=== PATIENT | male | born 1950 | race Caucasian/White ===

== ENCOUNTER → 2023-09-06 13:32 | Outpatient (REF) | payer BC, SELFPAY | LOC: RAD 13:32 | PROVIDERS: ATTENDING PHYSICIAN Podiatrist Primary Podiatric Medicine; FAMILY PHYSICIAN Internal Medicine | DX: L03.031 Cellulitis of right toe (principal); M79.674 Pain in right toe(s) | CPT/HCPCS: 73630 ==

== ENCOUNTER 2023-09-07 11:31 | Inpatient (IN) | payer BC, SELFPAY ==
[2023-09-07] VITALS (12 sets, daily range): BP systolic 124–170; BP diastolic 69–98; BMI 33.8; BMI 32.8
--- NOTE | 2023-09-07 08:05 | ED.MUSCINJ ---
HPI-Injury
<Juan Daniel Vera PA-C - Last Filed: 09/08/23 07:11>
General
Chief Complaint: Musculo-Skeletal Complaint
Source: patient
Exam Limitations: none
Time Seen by Provider: 09/07/23 07:46
Travel History
Have you had any contact with someone who has COVID-19?: No
Do you have any symptoms of coronavirus? Fever > 100 degrees, chills, cough, shortness of breath, sore throat, loss of taste or smell, muscle aches, or headache?: No
History of Present Illness-Injury
Initial Injury comments:
72-year-old male insulin-dependent diabetic with history of vascular disease presents in referral from podiatry office for infected right second toe. He has been on an oral antibiotic for the past week secondary to this. He had x-rays obtained of
his foot yesterday which demonstrated acute mild osteomyelitis of the distal nail of the second toe. Sent in by podiatry for escalation of care. Denies fevers nausea or vomiting. No chest pain. No other complaints at this
Past History
<Juan Daniel Vera PA-C - Last Filed: 09/08/23 07:11>
Past History
ED Past Medical History: CAD, HTN, Hypercholesterolemia, IDDM, OR and Other (Renal insufficiency)
ED Past Surgical History: Cardiac (Triple Bypass surgery, multiple cardiac stents)
Social History
Tobacco: Non-smoker
Drug: None
Personal:
Living: with family
Employment: Retired
Family History
Family History: Other
Phy Exam
<Juan Daniel Vera PA-C - Last Filed: 09/08/23 07:11>
Physical Exam
Physical Exam:
General: Well-appearing nontoxic male no acute respiratory distress
HEENT: Normocephalic atraumatic
Heart: Regular rate and rhythm no murmurs
Lungs: Clear to auscultation bilaterally no wheezing
Skin: Erythema and swelling noted to the right second toe. There are some erosion of the distal aspect of the toe. No lymphangitic streaking. The foot itself is not swollen
Vascular: 2+ dorsalis pedis pulse right foot with brisk capillary refill to the toes
Neurologic: Decreased sensation to light touch right foot alert and oriented x 3
Injury Course
<Juan Daniel Vera PA-C - Last Filed: 09/08/23 07:11>
Orders/Labs/Results
Orders:
Orders
09/07/23 08:38
Complete Blood Count/With Diff Urgent
Comprehensive Metabolic Panel Urgent
Blood Culture Q30M
RED Source: Blood/Venous
Specimen Description:
09/07/23 Lunch
2200 calorie (18 carb) Diabetic
At Your Request: Full Participation
Does patient need a safe tray?: No
09/07/23 10:44
Blood Culture Q30M
RED Source: Blood/Venous
Specimen Description:
09/07/23 10:59
Admit/Transfer Patient As Directed
Co-Sign Provider:
Level of Care: Inpatient admission
Assign to:: Medical/Surgical
Physician / Group: [place]
Diagnosis: Right second toe osteomyelitis
Reason for Hospitalization: see progress note
Expected length of stay greater than two midnights?: Yes
ELOS- Estimated Length of Stay in days: 3
I certify the patient meets the requirements for IP care: Yes
09/07/23 11:01
Code Status As Directed
Resuscitation Status: Full Code
09/07/23 15:41
Acetaminophen [Tylenol] 650 mg PO Q4HPRN PRN
Dextrose 50%-Water [Dextrose 50% Syringe] 12.5 grams IV [id number] PRN
Glucagon [GlucaGen] 1 mg IM PRN PRN
Insulin Aspart Corrective Low [Novolog Flexpen-Low Resistance] See Protocol SC AC
Tramadol HCl [Ultram] 50 mg PO Q8HPRN PRN
09/07/23 16:00
CeFAZolin 1 GRAM [Ancef] 1 gram in 5 ml IV Q8H
09/07/23 18:00
Enoxaparin Sodium [Lovenox] 40 mg SC QPM
Insulin NPH Human Isophane Pen [Humulin N Kwikpen] 40 units SC QPM
09/07/23 20:00
Galantamine [Razadyne] 8 mg PO BID
Memantine HCl [Namenda] 10 mg PO BID
Metoprolol [Lopressor] 50 mg PO BID
Pantoprazole [Protonix] 40 mg PO BID
09/07/23 20:05
Atorvastatin [Lipitor] 20 mg PO QPM
09/07/23 20:05
PHYSICIAN CONSULT Routine
Consulting Provider: Ruben Varela
Was physician already notified: Yes
Reason for consult: rt second toe OM
PODIATRY CONSULT Routine
Consulting Provider: Tre Urias
Was physician already notified: Yes
Reason for consult: Rt 2nd toe OM
Activity As Directed
Activity Level: As Tolerated
Bedside Glucose Monitoring As Directed
Frequency: AC&HS
Comment: Change to q6h if pt on TPN, tube feeding or not eating
I&O [Intake/ Output] As Directed
Frequency: q12h
DX Deep Vein Thrombosis Video Routine
09/08/23 06:00
BMP [Basic Metabolic Panel] IN AM
Glycohemoglobin (HgbA1c) IN AM
09/08/23 08:00
Aspirin Low Dose EC [Aspir Low (Enteric Coated)] 81 mg PO DAILY
Finasteride [Proscar] 5 mg PO DAILY
Insulin NPH Human Isophane Pen [Humulin N Kwikpen] 55 units SC DAILY
Tamsulosin [Flomax] 0.4 mg PO DAILY
09/09/23 08:00
Losartan [Cozaar] 100 mg PO DAILY
Abnormal Lab Results
09/07/23
08:38
Immature Gran % 0.6 H %
(0-0.5)
Monocytes % 9.6 H %
(1.7-9.3)
BUN 23 H mg/dl
(9-20)
Creatinine 1.4 H mg/dL
(0.7-1.3)
Glucose 118 H mg/dl
(70-99)
09/07/23 08:38
09/07/23 08:38
<Heike Childs MD - Last Filed: 09/07/23 08:39>
Orders/Labs/Results
Orders:
Orders
09/07/23 08:38
Complete Blood Count/With Diff Urgent
Comprehensive Metabolic Panel Urgent
Blood Culture Q30M
RED Source: Blood/Venous
Specimen Description:
09/07/23 Lunch
2200 calorie (18 carb) Diabetic
At Your Request: Full Participation
Does patient need a safe tray?: No
09/07/23 10:44
Blood Culture Q30M
RED Source: Blood/Venous
Specimen Description:
09/07/23 10:59
Admit/Transfer Patient As Directed
Co-Sign Provider:
Level of Care: Inpatient admission
Assign to:: Medical/Surgical
Physician / Group: [facility]
Diagnosis: Right second toe osteomyelitis
Reason for Hospitalization: see progress note
Expected length of stay greater than two midnights?: Yes
ELOS- Estimated Length of Stay in days: 3
I certify the patient meets the requirements for IP care: Yes
09/07/23 11:01
Code Status As Directed
Resuscitation Status: Full Code
09/07/23 15:41
Acetaminophen [Tylenol] 650 mg PO Q4HPRN PRN
Dextrose 50%-Water [Dextrose 50% Syringe] 12.5 grams IV [id number] PRN
Glucagon [GlucaGen] 1 mg IM PRN PRN
Insulin Aspart Corrective Low [Novolog Flexpen-Low Resistance] See Protocol SC AC
Tramadol HCl [Ultram] 50 mg PO Q8HPRN PRN
09/07/23 16:00
CeFAZolin 1 GRAM [Ancef] 1 gram in 5 ml IV Q8H
09/07/23 18:00
Enoxaparin Sodium [Lovenox] 40 mg SC QPM
Insulin NPH Human Isophane Pen [Humulin N Kwikpen] 40 units SC QPM
09/07/23 20:00
Galantamine [Razadyne] 8 mg PO BID
Memantine HCl [Namenda] 10 mg PO BID
Metoprolol [Lopressor] 50 mg PO BID
Pantoprazole [Protonix] 40 mg PO BID
09/07/23 20:05
Atorvastatin [Lipitor] 20 mg PO QPM
09/07/23 20:05
PHYSICIAN CONSULT Routine
Consulting Provider: Ruben Varela
Was physician already notified: Yes
Reason for consult: rt second toe OM
PODIATRY CONSULT Routine
Consulting Provider: Tre Urias
Was physician already notified: Yes
Reason for consult: Rt 2nd toe OM
Activity As Directed
Activity Level: As Tolerated
Bedside Glucose Monitoring As Directed
Frequency: AC&HS
Comment: Change to q6h if pt on TPN, tube feeding or not eating
I&O [Intake/ Output] As Directed
Frequency: q12h
DX Deep Vein Thrombosis Video Routine
09/08/23 06:00
BMP [Basic Metabolic Panel] IN AM
Glycohemoglobin (HgbA1c) IN AM
09/08/23 08:00
Aspirin Low Dose EC [Aspir Low (Enteric Coated)] 81 mg PO DAILY
Finasteride [Proscar] 5 mg PO DAILY
Insulin NPH Human Isophane Pen [Humulin N Kwikpen] 55 units SC DAILY
Tamsulosin [Flomax] 0.4 mg PO DAILY
09/09/23 08:00
Losartan [Cozaar] 100 mg PO DAILY
Abnormal Lab Results
09/07/23
08:38
Immature Gran % 0.6 H %
(0-0.5)
Monocytes % 9.6 H %
(1.7-9.3)
BUN 23 H mg/dl
(9-20)
Creatinine 1.4 H mg/dL
(0.7-1.3)
Glucose 118 H mg/dl
(70-99)
09/07/23 08:38
09/07/23 08:38
<Juan Daniel Vera PA-C - Last Filed: 09/08/23 07:11>
MDM/Problems Addressed
Differential Diagnosis Includes:
I reviewed x-rays from yesterday which demonstrates erosion of the distal aspect of the distal phalanx of the right second toe which is suggest acute mild osteomyelitis patient has been on oral antibiotics for a week without improvement. He has
risk factors of diabetes and vascular disease. Will admit to hospital. Overall he is nontoxic. Defer antibiotic until blood cultures and/or operative cultures are obtained.
<Juan Daniel Vera PA-C - Last Filed: 09/08/23 07:11>
*Critical Care Note
Total Time (30-74mins, 75-104mins- exclusive of procedures): Not Applicable
ED Attending Note
<Juan Daniel Vera PA-C - Last Filed: 09/08/23 07:11>
-
Portions of this chart may have been created with voice recognition software.� Occasional wrong word or��sound alike� substitutions may have occurred due to the inherent limitations of voice recognition software.
<Heike Childs MD - Last Filed: 09/07/23 08:39>
ED Attending Note
Patient seen and examined by attending physician: Yes
I performed the substantive portion of visit, reviewed & personally made and approve the management plan that is documented in note by myself or MASTER.: Yes
ED Attending Note:
Patient appears well. He is alert and oriented x 3. Heart sounds regular lungs are clear. Patient has strong pulses of feet bilaterally. Given patient appears nontoxic and well, IV antibiotics will be held off until likely procedure by podiatry.
Discharge Plan
Departure
Patient Disposition: Admit
Date of Disposition: 09/07/23
Time of Disposition: 09:07
Admit to: Med/Surg
Presentation/result/management discussed w/ accepting MD/DO: Hospitalist
Discharge Problem:
Acute osteomyelitis
Interventions
Interventions:
*Risk Screen - Suicide Last Done: 09/07/23 21:23
*General Assessment Last Done: 09/07/23 17:00
*Neglect/Abuse Screening Last Done: 09/07/23 17:00
ED- Fall Risk Assessment Last Done: 09/07/23 17:00
*ED COVID-19 Vaccine History Last Done: 09/07/23 21:23
*Nursing Disposition Last Done: 09/07/23 20:06
ED-Musculoskeletal Assessment Last Done: 09/07/23 08:44
Discharge Date and Time
Discharge Date/Time: 09/07/23 20:10
[2023-09-07 08:47] LABS: % Basophils 1.2 % (0-2); % Eosinophils 2.8 % (0-6); % Immature Granulocytes 0.6 % (0-0.5); % Lymphocytes 20.9 % (20.5-51.1); % Monocytes 9.6 % (1.7-9.3); % Neutrophils 64.9 % (42.2-75.2); Absolute Basophils 0.1 10^3/uL (0-0.2); Absolute Eosinophils 0.2 10^3/uL (0-0.7); Absolute Lymphocytes 1.4 10^3/uL (1.2-3.4); Absolute Monocytes 0.6 10^3/uL (0.1-0.6); Absolute Neutrophils 4.2 10^3/uL (1.4-6.5); Hematocrit 40.3 % (39.0-52.0); Hemoglobin 13.8 g/dL (13.0-18.0); Mean Corp Hgb Conc. 34.2 g/dL (33.0-37.0); Mean Corpuscular Hgb 29.3 pg (27.0-31.0); Mean Corpuscular Volume 85.6 fL (80.0-94.0); Mean Platelet Volume 10.2 fL (7.4-10.4); Nucleated Red Blood Cells % 0 % (-); Platelet Count 249 10^3/uL (130-400); Red Blood Cell Count 4.71 10^6/uL (4.70-6.10); Red Cell Dist. Width 13.1 % (11.5-14.5); White Blood Cell Count 6.5 10^3/uL (4.8-10.8)
[2023-09-07 08:56] LABS: ALT (SGPT) 20 U/L (0-50); AST (SGOT) 19 U/L (17-59); Albumin 3.9 g/dl (3.5-5.0); Alkaline Phosphatase 99 U/L (38-126); Blood Urea Nitrogen 23 mg/dl (9-20); Calcium 9.6 mg/dl (8.4-10.2); Carbon Dioxide 26 mmol/L (22-30); Chloride 103 mmol/L (98-107); Estimated Creatinine Clearance 57 ml/min; Glucose 118 mg/dl (70-99); Potassium 4.2 mmol/L (3.5-5.1); Sodium 136 mmol/L (135-145); Total Bilirubin 0.7 mg/dl (0.2-1.3); Total Protein 6.7 g/dl (6.3-8.2); eGFR 53.74
--- NOTE | 2023-09-07 11:07 | HPS.HSE ---
Family Physician
-
Family Physician: Khris Shen
Chief Complaint
-
Right second toe infection
History of Present Illness
Patient with longstanding issues that the toenails present are red possible right toenail infection.
Patient states his toenails turn black and falls off and then clears ;this has been happening for a while.
It happens in both feet.
This time his right second toenail on the right toe toenail became black and saw the clinic receptionist who took the second toenail off. This time is not clearing he has persistent right second toenail discoloration. Carbonator requested x-ray of the
second toe distal phalanx was concerning for osteomyelitis so referred to the hospital for further evaluation. He was also getting cephalexin antibiotics last week.
No fever or chills.
Not much pain from the toes. He has neuropathy of the toenails on bilateral foot from diabetes mellitus.
Denies any peripheral arterial disease. Denies prior history of cellulitis or foot infection needing surgery on antibiotics.
He has a history of CAD s/p CABG and 6 stents.
Longstanding diabetes since and his hemoglobin A1c has been up and down.
Medical History
Past Medical History
Past Medical History: Reports CAD, HTN, Hypercholesterolemia and IDDM
Past Surgical History: Reports Cardiac (CABG)
Social History
Tobacco: Non-smoker
Alcohol: Occasional
Drug: None
Living: With Family
Family History
Family History: Not pertinent
Allergies / Home Medications
Allergies reflects when Allergies were last updated in [employer].
Home Medications with original date entered in [employer]
Allergy/Medication List:
Allergies
Allergy/AdvReac Type Severity Reaction Status Date / Time
oxycodone Allergy Unknown Verified 04/05/22 14:00
Isqugeq-HEJ-SdO Reductase Allergy Unknown Verified 04/05/22 14:00
Inhibitor
[Baeznxv-Bop-Aaw Reductase
Inhibitor]
thallium-201 [Thallium-201] Allergy Headache Verified 04/05/22 14:00
and heart
racing
Home Medications
clopidogrel 75 mg tablet 75 mg PO DAILY ##90 08/14/16
finasteride 5 mg tablet 5 mg PO DAILY 02/14/17
galantamine 16 mg 24 hr capsule,extended release 16 mg PO DAILY 02/14/17
aspirin 81 mg tablet,delayed release 81 mg PO DAILY 02/17/17
metoprolol tartrate 50 mg tablet (Lopressor) 50 mg PO BID #60 tabs 02/17/17
pantoprazole 40 mg tablet,delayed release 40 mg PO BID 06/04/18
Constipation Pill 1 tab PO DAILYPRN PRN constipation 09/07/23
atorvastatin 20 mg tablet 20 mg PO QPM 09/07/23
calcium 1 tab PO DAILYPRN PRN leg cramps 09/07/23
cephalexin 500 mg capsule 500 mg PO TID 09/07/23
insulin NPH isoph U-100 human 100 unit/mL subcutaneous suspension (Novolin N NPH U-100 Insulin isophane) 40 unit SC QPM 09/07/23
insulin NPH isoph U-100 human 100 unit/mL subcutaneous suspension (Novolin N NPH U-100 Insulin isophane) 55 unit SC DAILY 09/07/23
losartan 100 mg tablet 100 mg PO DAILY 09/07/23
magnesium 1 tab PO DAILYPRN PRN leg cramps 09/07/23
memantine 10 mg tablet 10 mg PO BID 09/07/23
tamsulosin 0.4 mg capsule 0.4 mg PO DAILY 09/07/23
tramadol 50 mg tablet 50 mg PO Q8H PRN severe pain 09/07/23
Review of Systems
-
A 12 point ROS was completed and negative except as noted: Yes
Physical Exam
Vital Signs
Vital Signs
Temp Pulse Resp BP Pulse Ox
98.1 F 58 18 124/69 98
09/07/23 07:24 09/07/23 10:29 09/07/23 10:29 09/07/23 10:29 09/07/23 10:29
Physical Exam
General: No Apparent Distress
HEENT: Moist mucous membranes
Respiratory: Clear
Cardiac: S1/S2 and Regular Rhythm; No Tachycardia
GI: Soft, Non Tender, Non Distended and Normal Bowel Sounds
Musculoskeletal: Other (Rt second toe/third toe distally discolored with mild swelling and increased warmth of right distal medial ventral foot area ;good DP right and left foot)
Neuro: AO x 3 and No Motor Deficits; No Tremors
Psych: Calm
Laboratory Results
-
09/07/23 08:38
09/07/23 08:38
Laboratory Results
Total Bilirubin 0.7 mg/dl (0.2-1.3) 09/07/23 08:38
AST 19 U/L (17-59) 09/07/23 08:38
ALT 20 U/L (0-50) 09/07/23 08:38
Alkaline Phosphatase 99 U/L (38-126) 09/07/23 08:38
Data Reviewed
-
Diagnostic Radiology: Report Reviewed by me (rt foot xray)
Lab Data: Labs Reviewed by me
Impression/Plan
-
Right second and third toe diabetic foot infection with possible trace of right second toe distal phalanx osteomyelitis. Known diabetic. Admitted for possible surgical treatments. Started on IV Ancef pending culture data. Blood cultures are
drawn. No open draining wound currently. Consult clinic receptionist. He has good dorsalis pedis and if indicated we will get an arterial ultrasound.
Diabetes mellitus type 2 on insulin. History of diabetic neuropathy involving bilateral toes and bilateral foot. Continue with his home insulin regimen and he was going to be n.p.o. for surgery tomorrow ,hold tomorrow a.m. Insulin. Start on a
sliding scale . Check hemoglobin A1c.
Hypertension-continue his home medication and hold his a.m. losartan tomorrow if is going for surgery.
CAD s/p CABG and coronary stents. Asymptomatic without chest pain. On aspirin and Plavix. Hold Plavix for surgery. Continue aspirin and statins.
Elevated creatinine-possible chronic kidney disease stage 3 - follow BMP while in patient
Full code
[2023-09-07 15:31] LABS: Glucose - Point of Care 68 mg/dl (70-99)
[2023-09-07 16:22] LABS: Glucose - Point of Care 142 mg/dl (70-99)
[2023-09-07] MEDS: NOVOLOG FLEXPEN-LOW RESISTANCE SC ×2 (16:23→16:42)
[2023-09-07] MEDS: ANCEF 5 IV ×2 (16:30→23:52)
[2023-09-07] MEDS: ANCEF IV (16:47)
[2023-09-07 18:13] LABS: Glucose - Point of Care 194 mg/dl (70-99)
[2023-09-07] MEDS: HUMULIN N KWIKPEN 40 UNITS SC (18:28)
[2023-09-07] MEDS: NOVOLOG FLEXPEN-LOW RESISTANCE 300 UNITS SC (18:31)
[2023-09-07] MEDS: LOVENOX 40 MG SC (18:32)
[2023-09-07] MEDS: RAZADYNE 8 MG PO (19:54)
[2023-09-07] MEDS: PROTONIX 40 MG PO (21:13)
[2023-09-07] MEDS: LOPRESSOR 50 MG PO (21:14)
[2023-09-07] MEDS: LIPITOR 20 MG PO (21:15)
[2023-09-07] MEDS: NAMENDA 10 MG PO (21:19)
[2023-09-07 21:21] LABS: Glucose - Point of Care 231 mg/dl (70-99)
[2023-09-08 06:00] VITALS: BMI 32.4
[2023-09-08 08:16] LABS: Blood Urea Nitrogen 22 mg/dl (9-20); Calcium 9.4 mg/dl (8.4-10.2); Carbon Dioxide 25 mmol/L (22-30); Chloride 104 mmol/L (98-107); Estimated Creatinine Clearance 49 ml/min; Glucose 145 mg/dl (70-99); Potassium 4.5 mmol/L (3.5-5.1); Sodium 136 mmol/L (135-145); eGFR 45.78
[2023-09-08 09:49] LABS: Glycohemoglobin (HgbA1c) 9.1 % (4.0-5.6)
--- NOTE | 2023-09-08 09:59 | PTCARENOTE ---
Pt went off the floor at 8 am to get MRI and US of his foot and Lwr extremity. Pt came back to the floor now. He is a+ox3, able to walk to his hospital bed without incident.
[2023-09-08 10:00] VITALS: BP 140/78
[2023-09-08 10:18] LABS: Glucose - Point of Care 166 mg/dl (70-99)
[2023-09-08] MEDS: FLOMAX 0.400000000000000022 MG PO (10:44)
[2023-09-08] MEDS: LOPRESSOR 50 MG PO ×2 (10:44→20:47)
[2023-09-08] MEDS: PROTONIX 40 MG PO ×2 (10:44→20:47)
[2023-09-08] MEDS: PROSCAR 5 MG PO (10:44)
[2023-09-08] MEDS: RAZADYNE 8 MG PO ×2 (10:44→20:47)
[2023-09-08] MEDS: ANCEF 5 IV (10:44)
[2023-09-08] MEDS: NAMENDA 10 MG PO ×2 (10:44→20:47)
[2023-09-08] MEDS: ASPIR LOW (ENTERIC COATED) 81 MG PO (10:45)
[2023-09-08] MEDS: HUMULIN N KWIKPEN SC (10:45)
--- NOTE | 2023-09-08 11:10 | PTCARENOTE ---
Pt refused to eat this morning. Said he was not hungry. BS this morning (166) Pt is ordered 55 units of insulin. Sent message to the physician advising his insulin was held due to no intake.
[2023-09-08 13:08] LABS: Glucose - Point of Care 206 mg/dl (70-99)
[2023-09-08] MEDS: NOVOLOG FLEXPEN-LOW RESISTANCE 2 UNITS SC (13:46)
--- NOTE | 2023-09-08 13:51 | W.PN.HOSP.TC ---
Today's Communication/Plan
-
see plan above
Assessment / Plan
Assessment / Plan
Right second and third toe diabetic foot infection with right second/third toe osteomyelitis.� Known diabetic.�
MR findings most in keeping with osteomyelitis involving the first and second digits distal phalanges with questionable involvement of the distalmost aspect of the great toe proximal phalangeal head as well. No overt septic arthritis.
Findings suggesting infectious tendinosis/tenosynovitis of the great toe flexor tendon with disruption distally. Await arterial ultrasound results.
Await to see billboard poster. Continue with antibiotics. Consult ID.
Cellulitis of the distal great toe without abscess.
Diabetes mellitus type 2 on insulin.� History of diabetic neuropathy involving bilateral toes and bilateral foot.� Continue with his home insulin regimen .CW sliding scale� .� hemoglobin A1c 9.1. Need to opitimize insulin on DC once surgery is
done.
Hypertension-continue his home medication .
CAD s/p CABG and coronary stents.� Asymptomatic without chest pain.� On aspirin and Plavix.� Hold Plavix for surgery.� Continue aspirin and statins.
Elevated creatinine-possible chronic kidney disease stage 3 - follow BMP while in patient
Full code
Anticipated Discharge: > 48 hours
Subjective/Interval History
-
Date of Service: September 08, 2023
Parents okay
No fever chills.
Not much pain from the toes.
Objective Data
-
Labs:
Laboratory Results
09/08/23
06:45
Sodium 136
Potassium 4.5
Chloride 104
Carbon Dioxide 25
BUN 22 H
Creatinine 1.6 H
Glucose 145 H
Calcium 9.4
Vital Signs:
Vital Signs
Temp Pulse Resp BP Pulse Ox
97.9 F 65 18 140/78 97
09/08/23 10:00 09/08/23 10:44 09/08/23 10:00 09/08/23 10:44 09/08/23 11:33
Review of Systems
-
Constitutional: Denies Fever
EENT: Denies Sore Throat
Respiratory: Denies Trouble Breathing
Cardiac: Denies Chest Pain
Abdomen/GI: Denies Abdominal Pain, Nausea or Vomiting
Neuro: Denies Dizzy
Physical Exam
-
General: No Apparent Distress
HEENT: Moist Mucous Membranes
Respiratory: Clear to Auscultation
Cardiac: Regular Rhythm and S1/S2
GI: Soft
Skin: Other (right toes in dressing)
Neuro: AO x 3
Psych: Calm
Data Reviewed
-
MRI: Report Reviewed by me (mri foot)
Labs: Labs Reviewed by me
--- NOTE | 2023-09-08 13:52 | CON.ORTHO ---
Consultation
-
Date/Time Consultation Requested: 09/07/2023
Date/Time Consultation Performed: 09/08/2023
Requesting Provider: Dr. Arnold
Performing Provider: Sonia Bright PA-C, for Dr. Ruben Varela
Reason for Consultation: Right 2nd toe osteomyelitis
Consultation - Orthopedics
History
History of present illness: This 72-year-old male who presented to [facility] emergency department yesterday due to a nonhealing wound right second toe.� He reports he has a longstanding history of his toenails becoming dark and falling off
over time.� This recently happened with his second toe, prompting him to present to a local differential repairer, Dr. Olivares.� Last Wednesday, he had his nails cut and the area debrided.� He was placed on oral antibiotics as well as topical mupirocin.�
Despite this, his skin continue to breakdown and he began to experience bloody drainage from the right second toe.� He was once again seen by Dr. Olivares yesterday, who recommended that he present to the emergency department for suspicion of
osteomyelitis of his second toe.� He has a history of neuropathy of the toes, but is able to feel the dorsum of the foot.� He does have diabetes as well as a history of coronary artery disease.� More recently, his third toenail has also started to
become darker, but he denies any skin breakdown or surrounding erythema.� He denies any fevers, chills, or systemic flulike symptoms.� He denies any prior surgeries on his foot or toes, but frequently has the toenails cut in the region debrided.� He
did have an MRI of the lower extremity performed today as well as the lower extremity ultrasound to check vascularity.
Past medical history: Significant for coronary artery disease with 6 stents and history of CABG, hypertension, hypercholesterolemia, IDDM.
Past surgical history: CABG.
Social history: Denies tobacco use.� Occasional alcohol use.� Lives at home with family.
Family history: Noncontributory.
Review of systems: All systems reviewed and negative except for those mentioned in HPI.
Allergies / Home Medications
Allergy/AdvReac Type Severity Reaction Status Date / Time
oxycodone Allergy Unknown Verified 04/05/22 14:00
Vkbxcte-UGT-XzD Reductase Allergy Unknown Verified 04/05/22 14:00
Inhibitor
[Jopklkh-Zhj-Doj Reductase
Inhibitor]
thallium-201 [Thallium-201] Allergy Headache Verified 09/07/23 15:51
and heart
racing
Medication Instructions Recorded
clopidogrel 75 mg tablet 75 mg PO DAILY ##90 08/14/16
finasteride 5 mg tablet 5 mg PO DAILY 02/14/17
galantamine 16 mg 24 hr 16 mg PO DAILY 02/14/17
capsule,extended release
aspirin 81 mg tablet,delayed 81 mg PO DAILY 02/17/17
release
metoprolol tartrate 50 mg tablet 50 mg PO BID #60 tabs 02/17/17
(Lopressor)
pantoprazole 40 mg tablet,delayed 40 mg PO BID 06/04/18
release
Constipation Pill 1 tab PO DAILYPRN PRN constipation 09/07/23
atorvastatin 20 mg tablet 20 mg PO QPM 09/07/23
calcium 1 tab PO DAILYPRN PRN leg cramps 09/07/23
cephalexin 500 mg capsule 500 mg PO TID 09/07/23
insulin NPH isoph U-100 human 100 40 unit SC QPM 09/07/23
unit/mL subcutaneous suspension
(Novolin N NPH U-100 Insulin
isophane)
insulin NPH isoph U-100 human 100 55 unit SC DAILY 09/07/23
unit/mL subcutaneous suspension
(Novolin N NPH U-100 Insulin
isophane)
losartan 100 mg tablet 100 mg PO DAILY 09/07/23
magnesium 1 tab PO DAILYPRN PRN leg cramps 09/07/23
memantine 10 mg tablet 10 mg PO BID 09/07/23
tamsulosin 0.4 mg capsule 0.4 mg PO DAILY 09/07/23
tramadol 50 mg tablet 50 mg PO Q8H PRN severe pain 09/07/23
Vital Signs / Lab Results
Temp Pulse Resp BP Pulse Ox
97.9 F 65 18 140/78 97
09/08/23 10:00 09/08/23 10:44 09/08/23 10:00 09/08/23 10:44 09/08/23 11:33
09/07/23 08:38
09/08/23 06:45
Physical examination:
General: Well-developed, well-nourished male in no acute distress at rest.� AOx4.
HEENT: Atraumatic, normocephalic, neck supple.
Lungs: Nonlabored breathing on room air.
Heart: Normal rate and rhythm.
Right foot: Second digit with ulcerated lesion about the plantar aspect.� Minimal surrounding erythema, although some fluctuance noted on the dorsal aspect just above the DIP joint.� Disfiguration to the multiple nails about the right foot.� Foot is
warm to palpation.� Excellent dorsalis pedis and posterior tibial tendon pulses. Decreased sensation about all toes, but normal sensation to light touch about dorsum of foot.
Radiographic studies:
MRI of the right foot with and without contrast shows evidence of extensive marrow edema-like signal and T1 hypointense infiltrative signal throughout the second digit distal phalanx.� There is also extensive marrow edema throughout the distal
phalanx of the great toe.� Findings suggesting infectious tendinosis/tenosynovitis of the great toe flexor tendon with disruption distally.� No overt septic arthritis
Assessment / Plan
Assessment: Right second toe osteomyelitis of distal phalanx.
Plan: Unfortunately, with the presence of the current wound and osteomyelitis of the distal phalanx, it is recommended that Mr. Marinelli proceed with surgical intervention for his right second toe.� The case was discussed with Dr. Varela, and the
plan will be to proceed to the OR tomorrow for a right foot second toe partial amputation.� The procedure was discussed in detail along with the associated risk, benefits, and recovery process. We discussed that he will likely require post
operative antibiotics and Infectious Disease has already been consulted to assist with this. He will be NPO after midnight tonight in preparation for OR tomorrow. For now, he will keep a dry dressing in place over the right 2nd toe and may do
activities to tolerance. All questions were answered and patient was in agreement with treatment recommendations going forward.
--- NOTE | 2023-09-08 14:24 | CON.ID ---
Consultation
-
Date/Time Consultation Requested: 09/08/2023, 1355
Date/Time Consultation Performed: 09/08/2023, 1425
Requesting Provider: Dr. Sudhir Arnold
Performing Provider: Dr. Dagmar Goodrich
Reason for Consultation: toes osteomyelitis
Chief Complaint / Past History
Chief Complaint
Right second toe nonhealing wound
History of Present Illness
72 year old male with uncontrolled IDDM, neuropathy CAD sent to ED yesterday by podiatry due to toe osteo. He reports his toenails both feet normally would turn dark in color then fall off with subsequent new growth. However, this time the right
second toe nail did not spontaneously fall off. Last Wednesday, his uat tester removed the 2nd toenail. He then developed wound at the tip of the toe. He was placed on cephalexin without improvement. 09/05 xray showed possible toe osteo 2nd toe. He
came to ED yesterday and started on cefazolin. MRI done today. He will have second toe amputation tomorrow. No fevers or chills.
Past History
Additional Past Medical History:
IDDM
Neuropathy
CAD s/p CABG, stents
HTN
BPH
CKD3
Allergy History:
oxycodone Allergy (Verified 04/05/22 14:00)
Unknown
Lzbbtiu-PFB-EeD Reductase Inhibitor [Qkhhflg-Una-Uxf Reductase Inhibitor] Allergy (Verified 04/05/22 14:00)
Unknown
thallium-201 [Thallium-201] Allergy (Verified 09/07/23 15:51)
Headache and heart racing
Medications Reviewed: Yes
Current Antibiotics:
cefazolin
Social History
Tobacco: Non-Smoker
Alcohol: Occasional
Drug: None
Family History
Family History: Not Pertinent
Review of Systems
Review of Systems
General: Negative Fever, Chills or Change in Appetite
HEENT: Negative Sinus Problems, Headache or Pharyngitis
Cardiovascular: Negative Chest Pain or Dyspnea
Respiratory: Negative Dyspnea or Cough
Gasteroenterology: Other (no diarrhea); Negative Nausea or Vomiting
Genital / Urological: Negative Dysuria or Flank Pain
Endocrine: Negative Weakness
Neurological: Negative Headache or Dizziness
All systems: All other systems were reviewed and were negative
Vital Signs
Temp Pulse Resp BP Pulse Ox
97.9 F 65 18 140/78 97
09/08/23 10:00 09/08/23 10:44 09/08/23 10:00 09/08/23 10:44 09/08/23 11:33
Physical Exam
Physical Exam
Constitutional: No Acute Distress and Comfortable
Eyes: No Conjunctival Hemorrhage and Sclera Anicteric
Cardiovascular: Regular Rate and S1/S2
Pulmonary: Clear
Gastrointestinal: Soft, Non Tender, Non Distended and Normal Bowel Sounds
Genito-Urinary: Negative CVA Tenderness
Extremities: Negative Edema
Wound: Other (Right second toe tuft with wound- bloody. Right great toe: no wounds, no erythema. Right 3rd toe: dark purplish tissue beneath toenail)
Neurological: AO x 3
Lab / Diagnostic Study Results
09/07/23 08:38
09/08/23 06:45
Abs Immat Gran (auto) 0.0 10^3/uL (0-0.05) 09/07/23 08:38
Absolute Neuts (auto) 4.2 10^3/uL (1.4-6.5) 09/07/23 08:38
Absolute Lymphs (auto) 1.4 10^3/uL (1.2-3.4) 09/07/23 08:38
Absolute Monos (auto) 0.6 10^3/uL (0.1-0.6) 09/07/23 08:38
Absolute Basos (auto) 0.1 10^3/uL (0-0.2) 09/07/23 08:38
Immature Gran % 0.6 % (0-0.5) H 09/07/23 08:38
Neutrophils % 64.9 % (42.2-75.2) 09/07/23 08:38
Lymphocytes % 20.9 % (20.5-51.1) 09/07/23 08:38
Monocytes % 9.6 % (1.7-9.3) H 09/07/23 08:38
Eosinophils % 2.8 % (0-6) 09/07/23 08:38
Basophils % 1.2 % (0-2) 09/07/23 08:38
Microbiology Results
Micro:
09/07/23 10:44 Blood Culture - Preliminary
Blood/Venous No Growth in 24 hours- Final report to follow
09/07/23 08:38 Blood Culture - Preliminary
Blood/Venous No Growth in 24 hours- Final report to follow
09/08/23 MRI RLE: MR findings most in keeping with osteomyelitis involving the first and second digits distal phalanges with questionable involvement of the distalmost aspect of the great toe proximal phalangeal head as well. No overt septic
arthritis. Findings suggesting infectious tendinosis/tenosynovitis of the great toe flexor tendon with disruption distally. Cellulitis of the distal great toe without abscess.
Assessment / Plan
# Right 2nd toe distal non-healing wound with underlying osteo as seen in MRI.
# Right great toe osteo by MRI BUT DOES NOT CORRELATE clinically. Hallux without wounds or cellulitis.
# Uncontrolled DM with neuropathy
-Arterial duplex results pending.
- For right second toe partial amp tomorrow. Hoping for surgical cure
-Replace cefazolin with Zosyn through OR.
- Discussed importance of glycemic control.
--- NOTE | 2023-09-08 15:00 | CON.CAR ---
Addendum entered and electronically signed by Bernardino Bishop MD 09/08/23 17:37:
72 yo male with complex CAD (prior stenting--last 2016-- and CABG 2018), ICM with improved LVEF to 55-60% on echo today, HTN, DM admitted with osteomyelitis of right second toe. We are consulted for pre-operative evaluation. He may need amputation
vs surgical debridement. He can do a flight of stairs at home, and also chop wood without chest pain. Exam with RRR, no murmurs, no edema. Check EKG. Monitor tele. Echo today shows LVEF 55-60% and trace AR.
He can proceed to OR at intermediate risk. Plavix can be held. ASA 81mg and metoprolol should not be interrupted.
Original Note:
Consultation
Consultation Request
Date/Time Consultation Requested: 09/08/23 2p
Date/Time Consultation Performed: 09/08/23 2:30p
Requesting Provider: Dr. Arnold
Performing Provider: ROYAL Meyer for Dr. Bishop
Reason for Consultation: pre-op risk assessment
Medical History
-
Chief Complaint: right second toe nonhealing wound
History of Present Illness:
Mr. Marinelli is a 72 yo male with CAD (multiple PCI 3135-4292, LCx, LAD, RPDA, apical LAD) s/p CABG x 3 2017 ([place] Dr. Rodriguez), HTN, HLD, RBBB, IDDM, CKD and chronic pain, who presents to the ER with a nonhealing wound to his right second toe.
His presetter operator sent him in for evaluation. Imaging revealed concern for osteomyelitis and orthopedics evaluated him with recommendation for amputation of right second toe. We are consulted for pre-op risk assessment prior to toe amputation. His
film reader is Dr. Hebert at [facility] in [place], and was seen in the office 07/25/23 for annual follow up, no compalints. He is able to perform > 4 METS without any cardiac symptoms. He denies any cardiac symptoms.
PCP is Dr. Shen, who manages his IDDM.
Past Medical History
Past Medical History: Other (as above)
Past Surgical History: Cardiac (cabg x 3 in 2018)
Social History
Tobacco: Non-Smoker
Alcohol: None
Personal:
Living: With Family
Employment: Retired
Family History
Family History: Reviewed & Not Pertinent
Allergies / Home Medications
Allergy/AdvReac Type Severity Reaction Status Date / Time
oxycodone Allergy Unknown Verified 04/05/22 14:00
Wsddvfu-EGT-TlU Reductase Allergy Unknown Verified 04/05/22 14:00
Inhibitor
[Tekldmz-Dvc-Vkl Reductase
Inhibitor]
thallium-201 [Thallium-201] Allergy Headache Verified 09/07/23 15:51
and heart
racing
Medication Instructions Recorded Confirmed Type
clopidogrel 75 mg tablet 75 mg PO DAILY ##90 08/14/16 09/07/23 Rx
finasteride 5 mg tablet 5 mg PO DAILY 02/14/17 09/07/23 History
galantamine 16 mg 24 hr 16 mg PO DAILY 02/14/17 09/07/23 History
capsule,extended release
aspirin 81 mg tablet,delayed 81 mg PO DAILY 02/17/17 09/07/23 Rx
release
metoprolol tartrate 50 mg tablet 50 mg PO BID #60 tabs 02/17/17 09/07/23 Rx
(Lopressor)
pantoprazole 40 mg tablet,delayed 40 mg PO BID 06/04/18 09/07/23 History
release
Constipation Pill 1 tab PO DAILYPRN PRN constipation 09/07/23 09/07/23 History
atorvastatin 20 mg tablet 20 mg PO QPM 09/07/23 09/07/23 History
calcium 1 tab PO DAILYPRN PRN leg cramps 09/07/23 09/07/23 History
cephalexin 500 mg capsule 500 mg PO TID 09/07/23 09/07/23 History
insulin NPH isoph U-100 human 100 40 unit SC QPM 09/07/23 09/07/23 History
unit/mL subcutaneous suspension
(Novolin N NPH U-100 Insulin
isophane)
insulin NPH isoph U-100 human 100 55 unit SC DAILY 09/07/23 09/07/23 History
unit/mL subcutaneous suspension
(Novolin N NPH U-100 Insulin
isophane)
losartan 100 mg tablet 100 mg PO DAILY 09/07/23 09/07/23 History
magnesium 1 tab PO DAILYPRN PRN leg cramps 09/07/23 09/07/23 History
memantine 10 mg tablet 10 mg PO BID 09/07/23 09/07/23 History
tamsulosin 0.4 mg capsule 0.4 mg PO DAILY 09/07/23 09/07/23 History
tramadol 50 mg tablet 50 mg PO Q8H PRN severe pain 09/07/23 09/07/23 History
Review of Systems
-
History Source: Patient
All other systems: Negative unless noted
Physical Exam
Vital Signs
Temp Pulse Resp BP Pulse Ox
97.9 F 65 18 140/78 97
09/08/23 10:00 09/08/23 10:44 09/08/23 10:00 09/08/23 10:44 09/08/23 11:33
Lab Results
09/07/23 08:38
09/08/23 06:45
Physical Exam
General: Well Developed, Well Nourished and No Apparent Distress
HEENT: Normocephalic, Anicteric and Moist Mucous Membranes
Respiratory: Accessory Resp Muscle Use
Cardiac: S1/S2 and Regular Rhythm
Breast: Deferred by me
GI: Soft, Non Tender and Normal Bowel Sounds
Rectal: Deferred by Provider
Genito-urinary: No Costovertebral Tender
Musculoskeletal: No Clubbing, No Cyanosis and No Edema
Skin: Warm, Dry and Other (right second toe ulcer to plantar foot with erythema)
Neuro: AO x 3
Hematologic/Lymphatic: No Lymphadenopathy
Psych: Calm
Impression / Plan
-
Pre-op risk assessment - for right 2nd toe amputation.
- he is able to perform > 4 METS w/o anginal symptoms.
- last echo/ANDREZ was 10/2017 45-50%, will update echo today.
- ordered EKG now.
- telemetry monitoring during perioperative period.
Nonhealing wound - right second toe.
- osteomyelitis.
- ortho following, plan for OR tomorrow for amputation.
- ABX per ID.
CAD/CABG - stable w/o angina.
- check echo and EKG.
- continue ASA and Lopressor, hold Plavix.
HTN - stable on meds, continue.
HLD - stable on Lipitor (myalgias on Crestor), continue.
IDDM - insulin per PCP.
- poorly controlled with HgbA1C 9.1%.
CKD - outpatient notes state baseline creatinine of ~ 1.5.
Data Reviewed
-
EKG: Other (ordered)
Radiology: Report Reviewed by me (x-ray 09/06/23 suspicious for mild acute osteomyelitis)
MRI: Report Reviewed by me (09/08/23 osteomyelitis )
Medical Tests (Nuc Med, Echo etc): Report Reviewed by me (ANDREZ 10/2017 EF 45-50%) and Other (stress test 11/2018: submaximal rate 69% of MPHR exercising 1:30mins, no echo/ekg evidence of ischemia)
Labs: Labs Reviewed by me
Old Records: Reviewed
--- NOTE | 2023-09-08 15:40 | CM ---
Addendum entered by Delfina Lagos 09/08/23 16:12:
Pt's residential address is [address] [place] [id number]
Addendum entered by Delfina Lagos 09/08/23 15:46:
Of note, pt insured through [facility], no
Rx coverage
Original Note:
CM met with pt bedside
Pt resides with his spouse in a 2nd floor apartment- no elevator
13 steps up and then an additional half landing, around 6- 19 approx total
Pt notes independence with his ADLs, occasional use of a SPC
Denies hx with VN and SNF
PCP- Khris Shen
Rx- [facility]
Plan for OR tomorrow for partial toe amp
CM will continue to follow for post op needs
Will likely benefit from post op PT/OT
Discharge Disposition- home, but follow for possible VN/WOC/abx needs
[2023-09-08 17:19] VITALS: BP 138/71
[2023-09-08 17:56] LABS: Glucose - Point of Care 280 mg/dl (70-99)
[2023-09-08] MEDS: LOVENOX 40 MG SC (18:00)
[2023-09-08] MEDS: HUMULIN N KWIKPEN 40 UNITS SC (18:01)
[2023-09-08] MEDS: ZOSYN 50 IV (18:01)
[2023-09-08] MEDS: LIPITOR 20 MG PO (18:01)
[2023-09-08] MEDS: NOVOLOG FLEXPEN-LOW RESISTANCE 3 UNITS SC (18:02)
[2023-09-08 19:55] VITALS: BP 139/68
[2023-09-08 21:45] LABS: Glucose - Point of Care 163 mg/dl (70-99)
[2023-09-08 23:46] VITALS: BP 126/69
[2023-09-09] VITALS (13 sets, daily range): BP systolic 16–138; BP diastolic 45–74; BMI 32.2
[2023-09-09] MEDS: ZOSYN 50 IV ×4 (00:03→17:16)
[2023-09-09 06:03] LABS: Glucose - Point of Care 93 mg/dl (70-99)
[2023-09-09] MEDS: HUMULIN N KWIKPEN SC (07:44)
[2023-09-09] MEDS: NOVOLOG FLEXPEN-LOW RESISTANCE SC ×3 (07:44→17:15)
[2023-09-09 07:59] LABS: Blood Urea Nitrogen 27 mg/dl (9-20); Calcium 9.3 mg/dl (8.4-10.2); Carbon Dioxide 26 mmol/L (22-30); Chloride 105 mmol/L (98-107); Estimated Creatinine Clearance 44 ml/min; Glucose 118 mg/dl (70-99); Potassium 4.6 mmol/L (3.5-5.1); Sodium 137 mmol/L (135-145); eGFR 39.75
[2023-09-09] MEDS: PROTONIX 40 MG PO ×2 (08:01→20:19)
[2023-09-09] MEDS: FLOMAX 0.400000000000000022 MG PO (08:01)
[2023-09-09] MEDS: LOPRESSOR 50 MG PO ×2 (08:01→20:19)
[2023-09-09] MEDS: NAMENDA 10 MG PO ×2 (08:01→20:19)
[2023-09-09] MEDS: PROSCAR 5 MG PO (08:01)
[2023-09-09] MEDS: ASPIR LOW (ENTERIC COATED) 81 MG PO (08:01)
[2023-09-09] MEDS: RAZADYNE 8 MG PO ×2 (08:02→20:19)
[2023-09-09] MEDS: COZAAR 100 MG PO (08:03)
--- NOTE | 2023-09-09 09:27 | W.PN.CD ---
Today's Communication / Plan
-
OR today
holding plavix
hold losartan until labs back tomorrow AM
Impression / Plan
-
Pre-op risk assessment - for right 2nd toe amputation.
- he is able to perform > 4 METS w/o anginal symptoms.
- echo shows EF 55-60%, no sig valve disease
- OR today: plavix is on hold
Nonhealing wound - right second toe.
- osteomyelitis.
- ortho following, plan for OR
- ABX per ID.
CAD/CABG - stable w/o angina.
- continue ASA and Lopressor
-he is on halfway DAPT due to complex CAD, and Plavix is on hold for OR
AMADA on CKD3a
-hold losartan pending labs tomorrow
RBBB
-stable on EKG
HTN - stable
HLD - stable on Lipitor (myalgias on Crestor), continue.
IDDM - per primary team
Physical Exam
Vital Signs/Labs
Vital Signs
Temp Pulse Resp BP Pulse Ox
97.8 F 68 18 127/74 96
09/09/23 07:00 09/09/23 08:01 09/09/23 07:00 09/09/23 08:01 09/09/23 07:00
09/08/23 09/09/23 09/10/23
06:59 06:59 06:59
Actual Weight 99.592 kg 98.883 kg
09/07/23 08:38
09/09/23 07:19
Physical Exam
Constitutional: No acute distress and Comfortable
EENT: Moist mucous membranes
Cardiovascular: Rhythm & rate is regular, Pedal edema is absent, JVD pressure is normal and Systolic murmur absent
Respiratory: Respiratory effort normal and Lungs clear to auscul.
GI: Soft and Distention absent
Neuro/Psych: AO x 3
Data Reviewed
-
Date of Service: September 09, 2023
EKG: Ordered by me (Tele: NSR 60s)
Echo: Report Reviewed by me (per note)
Labs: Labs Reviewed by me
--- NOTE | 2023-09-09 09:41 | PTCARENOTE ---
Pt went to OR with transport in hospital bed. Pt is a+ox3 and in no distress.
[2023-09-09 10:55] LABS: Glucose - Point of Care 131 mg/dl (70-99)
--- NOTE | 2023-09-09 14:21 | W.PN.HOSP.TC ---
Today's Communication/Plan
-
Start on diet
Continue with antibiotics
Continue wound care per metal coater operator.
PT eval when ok from surgery.
Assessment / Plan
Assessment / Plan
Right second and third toe diabetic foot infection with right second/third toe osteomyelitis.� Known diabetic.�
MR findings most in keeping with osteomyelitis involving the first and second digits distal phalanges with questionable involvement of the distalmost aspect of the great toe proximal phalangeal head as well. No overt septic arthritis.
Findings suggesting infectious tendinosis/tenosynovitis of the great toe flexor tendon with disruption distally.
Continue with antibiotics per ID.
S/P Rt toe amputation - OR report pending
Resume diet
Cellulitis of the distal great toe without abscess.
Diabetes mellitus type 2 on insulin.� History of diabetic neuropathy involving bilateral toes and bilateral foot.� Continue with his home insulin regimen .CW sliding scale� .� hemoglobin A1c 9.1. opitimize insulin as needed
Hypertension-continue his home medication .
CAD s/p CABG and coronary stents.� Asymptomatic without chest pain.� On aspirin and Plavix.�Resume Plavix if ok from surgery.� Continue aspirin and statins.
Elevated creatinine-possible chronic kidney disease stage 3 - follow BMP while in patient
Full code
Anticipated Discharge: > 48 hours
Subjective/Interval History
-
Date of Service: September 09, 2023
Back from OR
Rt foot in bandage , no obvious external bleeding.
Denies shortness of breath. No nausea vomiting. No fever.
Objective Data
-
Labs:
Laboratory Results
09/09/23
07:19
Sodium 137
Potassium 4.6
Chloride 105
Carbon Dioxide 26
BUN 27 H
Creatinine 1.8 H
Glucose 118 H
Calcium 9.3
Vital Signs:
Vital Signs
Temp Pulse Resp BP Pulse Ox
97.7 F 61 18 133/62 97
09/09/23 13:25 09/09/23 13:25 09/09/23 13:25 09/09/23 13:25 09/09/23 13:25
I&O
09/08/23 09/09/23 09/10/23
06:59 06:59 06:59
Intake Total 580 / 580
Balance 580 / 580
Review of Systems
-
EENT: Denies Sore Throat
Respiratory: Denies Cough
Cardiac: Denies Chest Pain
Neuro: Denies Dizzy
Physical Exam
-
General: No Apparent Distress
HEENT: Moist Mucous Membranes
Respiratory: Clear to Auscultation (anteriorly)
Cardiac: Regular Rhythm and S1/S2
GI: Soft
Neuro: AO x 3
Data Reviewed
-
Labs: Labs Reviewed by me
--- NOTE | 2023-09-09 15:13 | W.PN.ID1 ---
Date of Service
Date of Service: September 09, 2023
Today's Communication
Transition Zosyn to Augmentin 875mg po bid x 10d.
Assessment / Plan
# Right 2nd toe distal non-healing wound with underlying osteo as seen in MRI.
# Right great toe osteo by MRI BUT DOES NOT CORRELATE clinically. Hallux without wounds or cellulitis.
# Uncontrolled DM with neuropathy
-Arterial duplex: no stenosis.
- 09/09/2023 s/p partial toe amputation
Suspect surgical cure
- Transition Zosyn to Augmentin 875mg po bid x 10d.
- Discussed importance of glycemic control.
#Additional Past Medical History:
IDDM
Neuropathy
CAD s/p CABG, stents
HTN
BPH
CKD3
Chief Complaint
-: Other (osteo)
Subjective / Review of Systems
Toe amp went well this morning.
Vital Signs / Physical Exam
Vital Signs
Vital Signs
Temp Pulse Resp BP Pulse Ox
97.7 F 61 18 133/62 97
09/09/23 13:25 09/09/23 13:25 09/09/23 13:25 09/09/23 13:25 09/09/23 13:25
Physical Exam
Constitutional: No Acute Distress and Comfortable
Cardiovascular: Regular Rate and S1/S2
Pulmonary: Clear
Gastrointestinal: Soft, Non Tender and Non Distended
Extremities: Negative Edema
Wound: Other (right foot pos-op dressing dry)
Neurological: AO x 3
Objective Data
Lab Data
Lab Results
09/07/23 08:38
09/09/23 07:19
Estimated Creat Clear 44 ml/min 09/09/23 07:19
Total Bilirubin 0.7 mg/dl (0.2-1.3) 09/07/23 08:38
AST 19 U/L (17-59) 09/07/23 08:38
ALT 20 U/L (0-50) 09/07/23 08:38
Alkaline Phosphatase 99 U/L (38-126) 09/07/23 08:38
Most recent labs reviewed.
Micro Results:
09/09/23 10:30 Wound Culture - Pending
Toe Gram Stain - Pending
09/09/23 10:30 Anaerobic Culture - Pending
Toe
09/07/23 10:44 Blood Culture - Preliminary
Blood/Venous No Growth in 48 hours- Final report to follow
09/07/23 08:38 Blood Culture - Preliminary
Blood/Venous No Growth in 48 hours- Final report to follow
09/08/23 MRI RLE: MR findings most in keeping with osteomyelitis involving the first and second digits distal phalanges with questionable involvement of the distalmost aspect of the great toe proximal phalangeal head as well. No overt septic
arthritis. Findings suggesting infectious tendinosis/tenosynovitis of the great toe flexor tendon with disruption distally. Cellulitis of the distal great toe without abscess.
[2023-09-09 17:04] LABS: Glucose - Point of Care 109 mg/dl (70-99)
[2023-09-09] MEDS: HUMULIN N KWIKPEN 40 UNITS SC (17:15)
[2023-09-09] MEDS: LIPITOR 20 MG PO (17:16)
[2023-09-09] MEDS: LOVENOX 40 MG SC (17:16)
--- NOTE | 2023-09-09 20:56 | W.PN.UPDATE ---
Update Note
Progress Note Update
Nursing reporting patient with c/o multiple episodes of diarrhea and patient requesting Imodium. Order placed for stool sample to test for C. Diff as patient has been on multiple antibiotics during this hospitalization and was on antibiotics at home
prior to admission.
[2023-09-09 21:19] LABS: Glucose - Point of Care 288 mg/dl (70-99)
[2023-09-10 00:05] VITALS: BP 116/66
[2023-09-10] MEDS: ZOSYN 50 IV (00:29)
[2023-09-10 03:51] VITALS: BP 141/68
[2023-09-10 05:20] VITALS: BMI 32.1
[2023-09-10 07:18] LABS: % Basophils 1.3 % (0-2); % Eosinophils 2.3 % (0-6); % Immature Granulocytes 0.3 % (0-0.5); % Lymphocytes 23.9 % (20.5-51.1); % Monocytes 11.2 % (1.7-9.3); Absolute Basophils 0.1 10^3/uL (0-0.2); Absolute Eosinophils 0.1 10^3/uL (0-0.7); Absolute Lymphocytes 1.5 10^3/uL (1.2-3.4); Absolute Monocytes 0.7 10^3/uL (0.1-0.6); Absolute Neutrophils 3.7 10^3/uL (1.4-6.5); Hematocrit 40.3 % (39.0-52.0); Hemoglobin 13.3 g/dL (13.0-18.0); Mean Corpuscular Hgb 29.3 pg (27.0-31.0); Mean Corpuscular Volume 88.8 fL (80.0-94.0); Mean Platelet Volume 10.6 fL (7.4-10.4); Nucleated Red Blood Cells % 0 % (-); Platelet Count 236 10^3/uL (130-400); Red Blood Cell Count 4.54 10^6/uL (4.70-6.10); Red Cell Dist. Width 13.1 % (11.5-14.5); White Blood Cell Count 6.1 10^3/uL (4.8-10.8)
--- NOTE | 2023-09-10 07:25 | W.PN.ORTHO ---
Today's Communication / Plan
-
72-year-old male postop day 1 right second toe DIP disarticulation amputation with Dr. Varela
-Weightbearing as tolerated in postoperative shoe
-Plan for outpatient follow-up 2 weeks from date of surgery.
-Patient may discharge from podiatric surgery standpoint. Will continue to follow if remains in house
Assessment
.
Distal Motor Intact: Yes
Dressing:
Clean, dry and intact.
Plan
.
Surgery / Date: 09 September 2023 right second toe disarticulation
Activity:
Out of bed.
PT/OT
Subjective
.
.:
Patient resting comfortably.
Vital Signs and Labs
.
Vital Signs and Labs:
Lab Results
09/10/23 06:50
Temp Pulse Resp BP Pulse Ox
97.7 F 68 18 141/68 95
09/10/23 03:51 09/10/23 03:51 09/10/23 03:51 09/10/23 03:51 09/10/23 03:51
[2023-09-10 07:35] VITALS: BP 140/70
[2023-09-10 07:40] LABS: Blood Urea Nitrogen 24 mg/dl (9-20); Calcium 8.9 mg/dl (8.4-10.2); Carbon Dioxide 25 mmol/L (22-30); Chloride 106 mmol/L (98-107); Estimated Creatinine Clearance 44 ml/min; Glucose 109 mg/dl (70-99); Potassium 4.3 mmol/L (3.5-5.1); Sodium 136 mmol/L (135-145); eGFR 39.75
[2023-09-10 07:44] LABS: Glucose - Point of Care 99 mg/dl (70-99)
--- NOTE | 2023-09-10 08:56 | W.PN.CD ---
Today's Communication / Plan
-
- Clinically stable from a cardiac standpoint after toe amputation yesterday.
- Resume Plavix when safe from a surgical standpoint.
- Will resume losartan at a lower dose of 25 mg daily for now; patient can follow-up with her primary [employer] Packer for uptitration.
- No further cardiac recommendations at this time; outpatient follow-up with his primary [employer] And Vegetable Packer.
Impression / Plan
-
Nonhealing wound - right second toe.
- osteomyelitis.
- ABX per ID.
- Clinically stable from a cardiac standpoint after toe amputation yesterday.
CAD/CABG - stable w/o angina.
- continue ASA and Lopressor
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
-Resume Plavix when safe from a surgical standpoint.
AMADA on CKD3a
-Patient was on losartan 100 mg daily at home, which was held due to hypotension.
-Will resume losartan at a lower dose of 25 mg daily for now; patient can follow-up with her primary Fruit And Vegetable Packer for uptitration.
RBBB
-stable on EKG
HTN -blood pressure is now stable; will reinitiate lower dose of losartan as above.
HLD - stable on Lipitor (myalgias on Crestor), continue.
IDDM - per primary team
Physical Exam
Vital Signs/Labs
Vital Signs
Temp Pulse Resp BP Pulse Ox
98.0 F 63 16 140/070 97
09/10/23 07:35 09/10/23 07:35 09/10/23 07:35 09/10/23 07:35 09/10/23 07:35
09/09/23 09/10/23 09/11/23
06:59 06:59 06:59
Actual Weight 98.883 kg 98.571 kg
09/10/23 06:50
09/10/23 06:50
Physical Exam
Constitutional: No acute distress and Comfortable
EENT: Anicteric
Cardiovascular: Rhythm & rate is regular, Pedal edema is absent, Systolic murmur absent and S1S2 is normal
Respiratory: Respiratory effort normal and Lungs clear to auscul.
GI: Soft
Neuro/Psych: AO x 3
Other: Skin (Warm, dry, intact)
Data Reviewed
-
Date of Service: September 10, 2023
EKG: Tracing Personally Visualized and interpreted ( telemetry: Sinus rhythm)
X-Ray/CT/US/MRI/NUC/PET: Discussed with Patient
Labs: Labs Reviewed by me
--- NOTE | 2023-09-10 10:23 | W.PN.HOSP.TC ---
Addendum entered and electronically signed by Sudhir Arnold MD 09/11/23 18:03:
Cellulitis of great toe present without abscess.
Original Note:
Today's Communication/Plan
-
dc
Assessment / Plan
Assessment / Plan
Right second and third toe diabetic foot infection with right second/third toe osteomyelitis.� Known diabetic.�
Cellulitis of the distal great toe without abscess.
MR findings most in keeping with osteomyelitis involving the first and second digits distal phalanges with questionable involvement of the distalmost aspect of the great toe proximal phalangeal head as well. No overt septic arthritis.
Findings suggesting infectious tendinosis/tenosynovitis of the great toe flexor tendon with disruption distally.
Continue with antibiotics per ID.
S/P Rt toe disarticulation/ amputation
Continue with wound care and weight-bear as tolerated in his postop shoe. 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
Cleared for discharge from surgical standpoint. Antibiotics switched to oral route.
PT eval today prior to DC
Pt doesnt think he would need VN for dressing changes. His is medical person and can take care of it.
Diabetes mellitus type 2 on insulin.� History of diabetic neuropathy involving bilateral toes and bilateral foot.� Continue with his home insulin regimen .CW sliding scale� .� hemoglobin A1c 9.1.
Patient states he is does not normally check his blood sugars. He only follows with his hemoglobin A1c.
Blood sugars here are pretty tight control especially in the morning. He normally says he has spikes of blood sugars at home which makes me think it is diet related. Advised about dietary discretions.
Also advised to check blood sugars at least twice a day and aim to keep it around 140 and in that way he can adjust his blood sugars more aggressively than wait for his hemoglobin A1c every 3 months.
Hypertension-Lower side on admission . Lower Losartan to 25mg for now and follow with PCP .
CAD s/p CABG and coronary stents.� Asymptomatic without chest pain.� On aspirin and Plavix.�Resume Plavix .� Continue aspirin,BB and statins.
Elevated creatinine-With raise in Cr compared to adx suspect AMADA on chronic kidney disease stage 3 .Most recent Cr 1.6 in 2021. Cr stable in last 2 days at 1.8 . suspect changes may be infection and BP related. BP was low post op. ARB decreased.
Advised to repeat in one week
Full code
Medically stable for discharge. DC after PT eval
More than 30 minutes spent in discharge including
Final examination of the patient
Summarizing hospital stay
Instructions for continuing care to all relevant caregivers
Preparation of discharge records, prescriptions, and referral forms
Total time spent (in minutes): 32
Anticipated Discharge: Today
Subjective/Interval History
-
Date of Service: September 10, 2023
Denies much pain from the right toe surgery site.
No fever or chills.
Objective Data
-
Labs:
Laboratory Results
09/10/23
06:50
WBC 6.1
Hgb 13.3
Hct 40.3
Plt Count 236
Sodium 136
Potassium 4.3
Chloride 106
Carbon Dioxide 25
BUN 24 H
Creatinine 1.8 H
Glucose 109 H
Calcium 8.9
Vital Signs:
Vital Signs
Temp Pulse Resp BP Pulse Ox
98.0 F 63 16 140/70 97
09/10/23 07:35 09/10/23 07:35 09/10/23 07:35 09/10/23 07:35 09/10/23 07:35
I&O
09/09/23 09/10/23 09/11/23
06:59 06:59 06:59
Intake Total 1170 / 1170
Balance 1170 / 1170
Review of Systems
-
EENT: Denies Sore Throat
Respiratory: Denies Cough or Trouble Breathing
Cardiac: Denies Chest Pain
Abdomen/GI: Denies Abdominal Pain, Nausea or Vomiting
Neuro: Denies Dizzy
Physical Exam
-
General: No Apparent Distress
HEENT: Moist Mucous Membranes
Respiratory: Clear to Auscultation
Cardiac: Regular Rhythm
GI: Soft
Musculoskeletal: Other (rt foot in dressing)
Neuro: AO x 3
Psych: Calm
Data Reviewed
-
Labs: Labs Reviewed by me
[2023-09-10] MEDS: FLOMAX 0.400000000000000022 MG PO (10:27)
[2023-09-10] MEDS: RAZADYNE 8 MG PO (10:27)
[2023-09-10] MEDS: NOVOLOG FLEXPEN-LOW RESISTANCE SC (10:27)
[2023-09-10] MEDS: PROTONIX 40 MG PO (10:27)
[2023-09-10] MEDS: AUGMENTIN 875 MG/125 MG 1 TABLET PO (10:28)
[2023-09-10] MEDS: NAMENDA 10 MG PO (10:28)
[2023-09-10] MEDS: ASPIR LOW (ENTERIC COATED) 81 MG PO (10:28)
[2023-09-10] MEDS: PROSCAR 5 MG PO (10:28)
[2023-09-10] MEDS: LOPRESSOR 50 MG PO (10:28)
[2023-09-10] MEDS: HUMULIN N KWIKPEN 55 UNITS SC (10:29)
[2023-09-10] MEDS: COZAAR 25 MG PO (10:32)
--- NOTE | 2023-09-10 10:37 | W.DS.TRANS ---
DC Summary - Area Secretary
-
Discharge Instructions:
Sleep Apnea Risk Intermediate
Discharge Diagnosis/Procedures Right second toe osteomyelitis status post
disarticulation/amputation
Diabetes mellitus type 2 on insulin
Hypertension
AMADA on chronic kidney disease stage III
Diet Diabetic, Carb Controlled
Activity As tolerated,No strenuous activity
Driving Restrictions No driving for 1 week
Bathing Restrictions OK to Shower
Blood Work BMP in one week - arrange through your PCP
Instructions:
Stand-Alone Forms:
Changes to Home Medications: Yes
Discharge Medications:
DC Medications w/original date entered in [employer]
clopidogrel 75 mg tablet 75 mg PO DAILY ##90 08/14/16
finasteride 5 mg tablet 5 mg PO DAILY 02/14/17
galantamine 16 mg 24 hr capsule,extended release 16 mg PO DAILY 02/14/17
aspirin 81 mg tablet,delayed release 81 mg PO DAILY 02/17/17
metoprolol tartrate 50 mg tablet (Lopressor) 50 mg PO BID #60 tabs 02/17/17
pantoprazole 40 mg tablet,delayed release 40 mg PO BID 06/04/18
Constipation Pill 1 tab PO DAILYPRN PRN constipation 09/07/23
atorvastatin 20 mg tablet 20 mg PO QPM 09/07/23
calcium 1 tab PO DAILYPRN PRN leg cramps 09/07/23
insulin NPH isoph U-100 human 100 unit/mL subcutaneous suspension (Novolin N NPH U-100 Insulin isophane) 40 unit SC QPM 09/07/23
insulin NPH isoph U-100 human 100 unit/mL subcutaneous suspension (Novolin N NPH U-100 Insulin isophane) 55 unit SC DAILY 09/07/23
magnesium 1 tab PO DAILYPRN PRN leg cramps 09/07/23
memantine 10 mg tablet 10 mg PO BID 09/07/23
tamsulosin 0.4 mg capsule 0.4 mg PO DAILY 09/07/23
tramadol 50 mg tablet 50 mg PO Q8H PRN severe pain 09/07/23
acetaminophen 325 mg tablet 650 mg PO Q4HPRN PRN mild pain /fever >100.4 #1 tab 09/10/23
amoxicillin 875 mg-potassium clavulanate 125 mg tablet 1 tab PO Q12 #20 tabs 09/10/23
losartan 25 mg tablet 25 mg PO DAILY #30 tabs 09/10/23
Home Medication Changes
New medication-Augmentin
Change in medication-losartan dose decreased from 100 mg to 25 mg
Pending Results: No
[2023-09-10 11:28] VITALS: BP 136/73
[2023-09-10 12:00] LABS: Glucose - Point of Care 152 mg/dl (70-99)
[2023-09-10] MEDS: NOVOLOG FLEXPEN-LOW RESISTANCE 1 UNITS SC (13:04)
[2023-09-10 14:00] VITALS: BP 126/64; PULSE 73
--- NOTE | 2023-09-10 14:19 | PTOTSP ---
Patient demonstrates safe and independent mobility wearing L post op shoe, no skilled physical therapy needs at this time.
--- NOTE | 2023-09-10 14:27 | W.PN.ID1 ---
Date of Service
Date of Service: September 10, 2023
Today's Communication
Continue augmentin
Assessment / Plan
# Right 2nd toe distal non-healing wound with underlying osteo as seen in MRI.
# Right great toe osteo by MRI BUT DOES NOT CORRELATE clinically. Hallux without wounds or cellulitis.
# Uncontrolled DM with neuropathy
-Arterial duplex: no stenosis.
- 09/09/2023 s/p partial toe amputation
Suspect surgical cure
- Continue Augmentin 875mg po bid x 10d total course
- Patient previously counseled on importance of glycemic control.
#Additional Past Medical History:
IDDM
Neuropathy
CAD s/p CABG, stents
HTN
BPH
CKD3
Chief Complaint
-: Other (Osteomyelitis of right second toe)
Subjective / Review of Systems
Review of Systems: No Fever and No Chills
Vital Signs / Physical Exam
Vital Signs
Vital Signs
Temp Pulse Resp BP Pulse Ox
98.1 F 72 20 136/73 96
09/10/23 11:28 09/10/23 11:28 09/10/23 11:28 09/10/23 11:28 09/10/23 11:28
Physical Exam
Constitutional: No Acute Distress, Comfortable and Non-toxic
Pulmonary: Non Labored
Wound: Other (Right second toe area wrapped. No strikethrough on dressing. No erythema extending up the leg.)
Neurological: Awake and Alert
Psychological: Calm
Objective Data
Lab Data
Lab Results
09/10/23 06:50
09/10/23 06:50
Estimated Creat Clear 44 ml/min 09/10/23 06:50
Total Bilirubin 0.7 mg/dl (0.2-1.3) 09/07/23 08:38
AST 19 U/L (17-59) 09/07/23 08:38
ALT 20 U/L (0-50) 09/07/23 08:38
Alkaline Phosphatase 99 U/L (38-126) 09/07/23 08:38
Most recent labs reviewed.
Micro Results:
09/09/23 10:30 Anaerobic Culture - Preliminary
Toe Culture pending. Anaerobic cultures are examined after 3
days incubation. Additional information to follow.
09/09/23 10:30 Wound Culture - Preliminary
Toe Gram Stain - Preliminary
09/07/23 10:44 Blood Culture - Preliminary
Blood/Venous No Growth in 72 hours- Final report to follow
09/09/23 21:48 C. difficile GDH Antigen & Toxins - Final
Feces/Stool Negative for toxigenic C.difficile
09/07/23 08:38 Blood Culture - Preliminary
Blood/Venous No Growth in 72 hours- Final report to follow
09/08/23 MRI RLE: MR findings most in keeping with osteomyelitis involving the first and second digits distal phalanges with questionable involvement of the distalmost aspect of the great toe proximal phalangeal head as well. No overt septic
arthritis. Findings suggesting infectious tendinosis/tenosynovitis of the great toe flexor tendon with disruption distally. Cellulitis of the distal great toe without abscess.
--- NOTE | 2023-09-10 15:51 | PN.CDI ---
CDI
- -
CDI:
Physician Documentation Request
Admit Date: 09/07/23 11:31
Dear Doctor Clayton,
Hospitalist progress notes state 'Cellulitis of the distal great toe without abscess'
ID progress notes states ' right great toe osteo by MRI BUT DOES NOT CORRELATE clinically. Hallux without wounds or cellulitis.'
In an attempt to clarify potentially conflicting documentation, please clarify
Cellulitis of great toe
Cellulitis of great toe ruled out
Other
Use of terms such as suspected, likely, concern for, or probable (associated with a specific diagnosis that is being evaluated, monitored, or treated as if it exists) are acceptable and can be coded in the inpatient setting, when documented at the
time of discharge.
Thank you,
Shellie Zaman RN, BSN
CDI Specialist
tiger text
Please use your independent medical judgment in providing your response.
--- NOTE | 2023-09-10 17:00 | CM ---
CM following re: d/c planning
Chart reviewed
Pt is medically stable for d/c
CM spoke with patient & spouse and asked if there was an interest in home care; pt declined
Pt will continue on PO Augmentin as directed
No additional d/c needs noted
Pt spouse to transport patient home at time of d/c
PLAN; d/c home no needs
--- NOTE | 2023-09-11 17:12 | W.DCSUMMARY ---
Discharge Summary
Discharge Data
Date of Admission: 09/07/23
Date of Discharge: 09/10/23
-
Pending Results: No
Hospital Course
Primary diagnosis:
Right second osteomyelitis status post partial second toe amputation with primary closure
Secondary diagnosis:
Diabetes mellitus type II with poor glycemic control. Hemoglobin A1c 9.1.
Essential hypertension
Coronary artery disease s/p prior coronary artery bypass and coronary stents
Suspected acute kidney injury on chronic kidney disease stage III
Hospital course:
Patient presented with right foot toe non healing wounds. He poorly controlled diabetic. He had an MRI which showed osteomyelitis involving the first and second digits distal phalanges with questionable involvement of distalmost aspect of the
great toe proximal phalanx head as well. No overt septic arthritis. Clinically the first toe osteomyelitis was felt less likely. He also had tenosynovitis/tendinosis of the greater toe flexor tendon with the disruption distally. He was seen by
the regulatory scientist and went on to have a partial second toe amputation. He was also seen by ID and postsurgery was switched to oral Augmentin for 10 days.
He was stressed about importance of glycemic control. He was not checking his blood sugars and was just following hemoglobin A1c. He was advised to start checking the blood sugars daily and be proactive with diabetes mellitus control than waiting
3 months to follow hemoglobin A1c and adjust treatment regimen.
Patient had no pippa or Postoperative cardiovascular event. Was cleared by cardiology preop.
Consultants on board:
Infectious disease-Dr. Goodrich
Content Assistant-Dr. Varela
Cardiology-Dr. Bishop
Discharge Plan
-
Patient Disposition: Home with Home Care
Discharge Diagnosis/Procedures: Right second toe osteomyelitis status post disarticulation/amputation
Diabetes mellitus type 2 on insulin
Hypertension
AMADA on chronic kidney disease stage III
Diet: Diabetic, Carb Controlled
Activity: As tolerated and No strenuous activity
Additional Activity: weightbearing as tolerated to right lower extremity with postoperative shoe in place. May remove postoperative shoe when not ambulating
Driving Restrictions: Not until seen by your Dr
Bathing Restrictions: Do not get right lower extremity wet or soiled
Blood Work: BMP in one week - arrange through your PCP
Referrals:
Ruben Varela DPM [Active] - in two weeks (Please call the office at [phone]. 2-week follow-up from date of surgery for suture removal and wound eval with a physician data assistant and a subsequent 4-week follow-up from date of surgery with
Dr. Varela)
Khris Shen MD [Family Provider] - in less than 1 week
Prescriptions:
New
losartan 25 mg Tablet
25 mg PO DAILY Qty: 30 0RF
Rx Instructions:
Dose decreased this admission
amoxicillin-pot clavulanate 875-125 mg Tablet
1 tab PO Q12 Qty: 20 0RF
acetaminophen 325 mg Tablet
650 mg PO Q4HPRN PRN (Reason: mild pain /fever >100.4) Qty: 1 0RF
Continued
clopidogrel 75 MG tablet
75 mg PO DAILY Qty: 90 3RF
finasteride 5 MG tablet
5 mg PO DAILY
galantamine 16 MG capsule,ext rel. pellets 24 hr
16 mg PO DAILY
aspirin 81 MG tablet,delayed release (DR/EC)
81 mg PO DAILY 0RF
metoprolol tartrate [Lopressor] 50 MG tablet
50 mg PO BID Qty: 60 1RF
pantoprazole 40 MG tablet,delayed release (DR/EC)
40 mg PO BID
atorvastatin 20 mg Tablet
20 mg PO QPM
tramadol 50 mg Tablet
50 mg PO Q8H PRN (Reason: severe pain)
Patient Comments:
09/07/2023, pt. filled this med. on 08/13/2023 for 90 tablets per PDMP.
tamsulosin 0.4 mg Capsule
0.4 mg PO DAILY
Novolin N NPH U-100 Insulin 100 unit/mL Suspension
55 unit SC DAILY
Novolin N NPH U-100 Insulin 100 unit/mL Suspension
40 unit SC QPM
memantine 10 mg Tablet
10 mg PO BID
calcium
1 tab PO DAILYPRN PRN (Reason: leg cramps)
magnesium
1 tab PO DAILYPRN PRN (Reason: leg cramps)
Constipation Pill
1 tab PO DAILYPRN PRN (Reason: constipation)
Patient Comments:
09/07/2023, pt. unsure of name of this med. that he uses to relieve his constipation.
Discontinued
cephalexin 500 mg Capsule
500 mg PO TID
Patient Comments:
09/07/2023, pt. filled this med. on 08/30/2023 and is instructed to take one capsule TID for 8 days; pt. has 9 capsules left to take.
losartan 100 mg Tablet
100 mg PO DAILY
Discharge Orders:
Discharge Patient (As Directed); Ordered 09/10/23
Ordered By: Sudhir Arnold
Discharge Date and Time
Discharge Date/Time: 09/10/23 15:37
== END 2023-09-10 15:37 | disposition home or self-care (01) | DRG 617 ==
LOC: 4 EAST ACU 11:31
PROVIDERS: Physician Assistant; ADMITTING PHYSICIAN Internal Medicine; CONSULT PHYSICIAN Internal Medicine; CONSULT PHYSICIAN Student in an Organized Health Care Education/Training Program; EMERGENCY PHYSICIAN Emergency Medicine; FAMILY PHYSICIAN Internal Medicine; OTHER PHYSICIAN Internal Medicine Infectious Disease
PROC: 0Y6R0Z3 Detachment at Right 2nd Toe, Low, Open Approach (ICD-10-PCS; 2023-09-09)
DX: E11.69 Type 2 diabetes mellitus with other specified complication (principal); M86.171 Other acute osteomyelitis, right ankle and foot; N17.9 Acute kidney failure, unspecified; Z79.899 Other long term (current) drug therapy; L08.9 Local infection of the skin and subcutaneous tissue, unspecified; E11.628 Type 2 diabetes mellitus with other skin complications; E11.40 Type 2 diabetes mellitus with diabetic neuropathy, unspecified; E11.65 Type 2 diabetes mellitus with hyperglycemia; Z79.4 Long term (current) use of insulin; N18.30 Chronic kidney disease, stage 3 unspecified; I12.9 Hypertensive chronic kidney disease with stage 1 through stage 4 chronic kidney disease, or unspecified chronic kidney disease; I25.10 Atherosclerotic heart disease of native coronary artery without angina pectoris; Z95.1 Presence of aortocoronary bypass graft; Z95.5 Presence of coronary angioplasty implant and graft; E78.00 Pure hypercholesterolemia, unspecified; I45.10 Unspecified right bundle-branch block; Z79.02 Long term (current) use of antithrombotics/antiplatelets; L03.031 Cellulitis of right toe; E11.22 Type 2 diabetes mellitus with diabetic chronic kidney disease; N18.31 Chronic kidney disease, stage 3a
CPT/HCPCS: 88305; 73723; 80048; 80053; 82962; 83036; 85025; 87040; 87070; 87075; 87147; 87205; 87324; 87449; 93005; 93306; 93922; 93925; 97162; 99285; A9575

== ENCOUNTER → 2023-12-11 09:00 | Outpatient (REF) | payer BC, OTHER, SELFPAY | LOC: MRI 3T 09:00 | PROVIDERS: ATTENDING PHYSICIAN Anesthesiology; FAMILY PHYSICIAN Internal Medicine | DX: M54.16 Radiculopathy, lumbar region (principal) | CPT/HCPCS: 72148 ==

== ENCOUNTER → 2024-03-14 12:01 | Outpatient (REF) | payer BC, SELFPAY | LOC: RAD 12:01 | PROVIDERS: FAMILY PHYSICIAN Internal Medicine | DX: M25.571 Pain in right ankle and joints of right foot (principal) | CPT/HCPCS: 73620 ==

== ENCOUNTER → 2024-04-12 07:35 | Outpatient (REF) | payer BC, SELFPAY | LOC: RAD 07:35 | PROVIDERS: ATTENDING PHYSICIAN Internal Medicine | DX: M54.12 Radiculopathy, cervical region (principal) | CPT/HCPCS: 72050 ==

== ENCOUNTER 2024-05-16 13:36 | Outpatient (RCR) | payer BC, SELFPAY | END 2024-05-16 23:59 | disposition home or self-care (01) | LOC: RPT 13:36 | PROVIDERS: ATTENDING PHYSICIAN Nurse Practitioner Gerontology | DX: M54.12 Radiculopathy, cervical region (principal); Z73.6 Limitation of activities due to disability; R29.3 Abnormal posture | CPT/HCPCS: 97010; 97110; 97112; 97162 ==

== ENCOUNTER → 2024-07-03 20:42 | Outpatient (REF) | payer BC, SELFPAY | LOC: MRI 3T 20:42 | PROVIDERS: ATTENDING PHYSICIAN Internal Medicine; FAMILY PHYSICIAN Internal Medicine | DX: M54.12 Radiculopathy, cervical region (principal) | CPT/HCPCS: 72141 ==

== ENCOUNTER → 2024-12-05 08:39 | Outpatient (REF) | payer BC, SELFPAY ==
[2024-12-05 09:48] LABS: % Basophils 1.2 % (0-2); % Eosinophils 2.2 % (0-6); % Immature Granulocytes 0.4 % (0-0.5); % Lymphocytes 18.8 % (20.5-51.1); % Neutrophils 69.4 % (42.2-75.2); Absolute Basophils 0.1 10^3/uL (0-0.2); Absolute Eosinophils 0.1 10^3/uL (0-0.7); Absolute Monocytes 0.4 10^3/uL (0.1-0.6); Absolute Neutrophils 3.5 10^3/uL (1.4-6.5); Hematocrit 42.3 % (39.0-52.0); Hemoglobin 14.1 g/dL (13.0-18.0); Mean Corp Hgb Conc. 33.3 g/dL (33.0-37.0); Mean Corpuscular Hgb 29.4 pg (27.0-31.0); Mean Corpuscular Volume 88.1 fL (80.0-94.0); Mean Platelet Volume 10.3 fL (7.4-10.4); Nucleated Red Blood Cells % 0 % (-); Platelet Count 238 10^3/uL (130-400); Red Cell Dist. Width 12.9 % (11.5-14.5); White Blood Cell Count 5.1 10^3/uL (4.8-10.8)
[2024-12-05 10:08] LABS: NT-proBNP 391 pg/ml
[2024-12-05 10:22] LABS: ALT (SGPT) 20 U/L (0-50); AST (SGOT) 20 U/L (17-59); Blood Urea Nitrogen 27 mg/dl (9-20); Calcium 9.8 mg/dl (8.4-10.2); Carbon Dioxide 27 mmol/L (22-30); Chloride 107 mmol/L (98-107); Creatine Phosphokinase 110 U/L (55-170); Glucose 214 mg/dl (70-99); HDL Cholesterol 52 mg/dl; Iron 126 ug/dl (49-181); LDL Cholesterol, Calculated 86 mg/dl; Magnesium 1.9 mg/dl (1.6-2.3); Potassium 4.8 mmol/L (3.5-5.1); Sodium 138 mmol/L (135-145); Total Cholesterol 168 mg/dl (50-199); Triglyceride 154 mg/dl (10-149); Very Low Density Lipoprotein 30 mg/dl (0-30); eGFR 53.07
[2024-12-05 10:31] LABS: Percent Saturation 40 % (20-50); Total Iron Binding Capacity 315 ug/dl (261-462)
[2024-12-05 10:38] LABS: Free T3 4.45 pg/ml (2.77-5.27); Free T4 0.95 ng/dl (0.78-2.19)
[2024-12-05 10:55] LABS: Ferritin 77.6 ng/ml (17.9-464.0)
[2024-12-07 01:56] LABS: Transferrin 253 mg/dL (200-360)
== END ==
LOC: RAD 08:39
PROVIDERS: ATTENDING PHYSICIAN Internal Medicine Cardiovascular Disease; FAMILY PHYSICIAN Internal Medicine
DX: R06.09 Other forms of dyspnea (principal)
CPT/HCPCS: 36415; 71046; 80048; 80061; 82550; 82728; 83540; 83550; 83735; 83880; 84439; 84443; 84450; 84460; 84466; 84481; 85025

== ENCOUNTER → 2024-12-15 10:53 | Outpatient (REF) | payer BC, SELFPAY | LOC: RAD 10:53 | PROVIDERS: ATTENDING PHYSICIAN Physician Assistant | DX: Z98.890 Other specified postprocedural states (principal); R05.1 Acute cough | CPT/HCPCS: 71046 ==

== ENCOUNTER → 2025-05-09 09:01 | Outpatient (REF) | payer BC, SELFPAY ==
[2025-05-09 10:11] LABS: Hematocrit 43.3 % (39.0-52.0); Hemoglobin 14.2 g/dL (13.0-18.0); Mean Corp Hgb Conc. 32.8 g/dL (33.0-37.0); Mean Corpuscular Volume 89.6 fL (80.0-94.0); Nucleated Red Blood Cells % 0 % (-); Platelet Count 275 10^3/uL (130-400); Red Cell Dist. Width 13.1 % (11.5-14.5)
[2025-05-09 10:36] LABS: ALT (SGPT) 19 U/L (0-50); AST (SGOT) 22 U/L (17-59); Albumin 4.3 g/dl (3.5-5.0); Alkaline Phosphatase 97 U/L (38-126); Blood Urea Nitrogen 16 mg/dl (9-20); Calcium 9.9 mg/dl (8.4-10.2); Carbon Dioxide 27 mmol/L (22-30); Chloride 103 mmol/L (98-107); Glucose 96 mg/dl (70-99); Potassium 4.4 mmol/L (3.5-5.1); Sodium 136 mmol/L (135-145); Total Protein 7.1 g/dl (6.3-8.2); eGFR 53.07
[2025-05-09 12:32] LABS: Glycohemoglobin (HgbA1c) 9.3 % (4.0-5.9)
== END ==
LOC: REG 09:01
PROVIDERS: ATTENDING PHYSICIAN Internal Medicine
DX: Z01.818 Encounter for other preprocedural examination (principal)
CPT/HCPCS: 36415; 80053; 83036; 85025